=== PATIENT | female | born 1975 | race Caucasian/White ===

== ENCOUNTER 2017-03-01 23:01 | Emergency (ER) | payer OTHER ==
[~2017-03-01 23:01] MED LIST: ABILIFY PO; ALPRAZOLAM PO; DILANTIN PO; LITHIUM PO
[2017-03-03] MEDS ORDERED: TOPAMAX (11:42)
== END 2017-03-02 00:21 | disposition left against medical advice (07) ==
LOC: CED 23:01
DX: Z53.21 Procedure and treatment not carried out due to patient leaving prior to being seen by health care provider (principal)

== ENCOUNTER 2017-03-03 11:34 | Emergency (ER) | payer OTHER ==
[2017-03-03] MEDS ORDERED: TOPAMAX (11:42)
== END 2017-03-03 12:35 | disposition home or self-care (01) ==
LOC: SED 11:34
DX: K08.89 Other specified disorders of teeth and supporting structures (principal); F10.129 Alcohol abuse with intoxication, unspecified; J44.9 Chronic obstructive pulmonary disease, unspecified; F17.210 Nicotine dependence, cigarettes, uncomplicated
CPT/HCPCS: 99283